=== PATIENT | female | born 2005 | race Caucasian/White ===

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

== ENCOUNTER 2024-08-28 02:40 | Emergency (ER) | payer SELFPAY ==
[2024-08-28] MEDS: ACETAMINOPHEN TAB 500 MG TAB PO STA (03:12)
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
[2024-08-28 05:56] VITALS: BP 104/72; PULSE 82; RESP 17; TEMP 98.1
== END 2024-08-28 05:57 | disposition home or self-care (01) ==
LOC: EC 02:40
CPT/HCPCS: 70450; 72125; 99284

== ENCOUNTER 2024-08-31 16:07 | Emergency (ER) | payer OTHER ==
[2024-08-31 16:11] VITALS: PULSE 75; RESP 18
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
[2024-08-31 17:48] VITALS: BP 120/81; TEMP 97.7
== END 2024-08-31 17:48 | disposition home or self-care (01) ==
LOC: EC 16:07
CPT/HCPCS: 72070; 99283